=== PATIENT | male | born 1965 | race Caucasian/White ===

== ENCOUNTER 2020-05-12 07:40 | Day surgery (SDC) | payer MEDICARE, MEDICAID ==
[~2020-05-12] VITALS: Ht 180.3 cm; Wt 189.6 kg
[~2020-05-12 07:40] MED LIST: ALLOPURINOL300 MG PO; AMOX TR-K CLV1 EAC1 PO; ASPIR-LOW81 MG PO; COLCHICINE0.6 M1 PO; INSULIN SYRING SUB-Q; LEVEMIR100 UNIT/1 SUB-Q; LEVOTHYROXINE75 MCG PO; LEXAPRO10 MG PO; LOSARTAN POTASS25 MG PO; NOVOLIN N100 UNIT/1 SUB-Q; NOVOLIN R100 UNIT/1 SUB-Q; RELION PRIME1 EACH MISC; SIMVASTATIN10 MG PO; TRULICITY0.75 MG/0. SUB-Q; [UNRECOGNIZED DRUG - OTHER] MISC
--- NOTE | 2020-05-12 08:32 | NUR ---
SEVERE VENOUS STASIS TO LOWER LEGS SMALL 1CM OPEN AREA RIGHT LATERAL LOWER LEG.
--- NOTE | 2020-05-12 08:49 | NUR ---
RED EXCORIATED AREA BUTTOCKS UPPER POSTERIOR THIGHS, WITH MULTIPLE PUSTULE PIMPLES IN AREA .
--- NOTE | 2020-05-12 09:24 | NUR ---
05/12/20 0924 Sushma Florentino 0915- PT ARRIVES TO PACU AROUSABLE TO VOICE. PT VERY DROWSY AND FALLS RIGHT BACK TO SLEEP. RESP EVEN AND UNLABORED. OXYGEN SAT HIGH 90'S TO 100% ON 10L VIA MASK. 09- OXYGEN TITRATED DOWN TO 6L VIA MASK. PT REMAINS AROUSABLE TO STIMULUS, FALLS INSTANTLY BACK TO SLEEP.
--- NOTE | 2020-05-12 10:30 | NUR ---
PT TOLERATES PO WELL WITH NO COMPLAINTS OF NAUSEA. PT HAS URINAL ON BEDRAIL THAT IS EMPTIED OF APPROX 450 MLS YELLOW URINE. PT DRESSES SELF IN ANTICIPATION FOR SISTER'S ARRIVAL. 1110: PT SISTER NOTIFIES DS UNIT THAT SHE IS WAITING AT MAIN HOSPITAL ENTRANCE. PT WHEELED TO PERSONAL VAN IN PARKING LOT TO STORE WC AND DC'S HOME WITH SISTER.
--- NOTE | 2020-05-12 11:37 | OR ---
[facility] [address] [place], [place] [address] Signed DATE OF OPERATION: 05/12/2020 SURGEON: Jeannette Bello MD PREOPERATIVE DIAGNOSES: 1. Normocytic anemia. 2. Chronic diarrhea. POSTOPERATIVE DIAGNOSIS: Moderate internal hemorrhoids. PROCEDURE: Colonoscopy without biopsy. ESTIMATED BLOOD LOSS: None. INDICATIONS: Verito is a 55-year-old morbidly obese gentleman with significant medical issues including hypoventilatory syndrome and his diabetes. He has also been found to have normocytic anemia as well. We tried to do his colonoscopy a few weeks ago, but his prep was quite inadequate. He returns now having undergone a double bowel prep. He said he spent the whole day on the toilet and he thinks it is much better. In the office, we had reviewed endoscopy and of course, he is quite familiar with that at this point in time. He knows there is risk including, but not limited to gas bloating, crampy abdominal pain, bleeding, perforation requiring surgery, and missed diagnosis. Also because of his size and medical issues, we asked that an anesthesia help us with monitored anesthesia care. He had expressed understanding and wished to proceed. DESCRIPTION OF PROCEDURE: Verito was taken into our endoscopy suite and placed in the left lateral decubitus position. He was placed under LMA anesthesia. That proved to be a thomas decision as he is extremely large man with a very full lozano with hypoventilation syndrome. After this, a digital rectal exam was performed and this was unremarkable. The adult colonoscope was introduced and advanced under direct visualization of the camera. Overall, his prep was markedly improved on this occasion, but probably slightly below average. He had areas of liquid particulate stool matter, most of that was suctioned out. Unfortunately, the scope was easy to pass right up to the hepatic flexure. After that, it took some time and effort to get into the right colon. I could not quite get the scope behind the ileocecal valve and therefore, there was some liquid in that area, Electronically Signed By: JEANNETTE BELLO MD 05/12/20 1137 PATIENT NAME: VERITO ROCKWELL [employer] REPORT DATE OF : 65 REPORT #: [id number] PHYSICIAN: JEANNETTE BELLO MD PCP: RAMÍREZ JOHNSTON MD REPORT IS CONFIDENTIAL AND NOT TO BE RELEASED WITHOUT AUTHORIZATION [facility] [address] [place], [place] [address] Signed I could not quite see. Otherwise, he was markedly improved on this occasion. We did identify the ileocecal valve quite readily. We could see bubbles obviously coming through the ileocecal valve during the test. The scope was then slowly withdrawn. We taken random biopsies previously and they had come back fine. Therefore, no additional random biopsies on this occasion. We saw no polyps, no masses, no diverticulosis. The rectum was unremarkable. Upon retroflexion of scope, he does have moderate-sized internal hemorrhoid columns. After this, the gas was suctioned out and the gastroscope removed. Verito had tolerated the procedure quite well. RECOMMENDATIONS: Verito can follow up in 10 years for routine screening colonoscopy. He should always use a double bowel prep. He will always need monitored anesthesia care. Jeannette Bello MD ALB/MODL /[id number] cc: MD Ramírez Nguyễn, MD Jeannette Bello, MD Maurizio Cullen MD Copies: LITA ARRIAZA MD, MALCOLM MD BOWER,JEANNETTE CULLEN,MAURIZIO Bliss MD ~ Electronically Signed By: JEANNETTE BELLO MD 05/12/20 1137 PATIENT NAME: VERITO ROCKWELL [employer] REPORT DATE OF : 65 REPORT #: [id number] PHYSICIAN: JEANNETTE BELLO MD PCP: RAMÍREZ JOHNSTON MD REPORT IS CONFIDENTIAL AND NOT TO BE RELEASED WITHOUT AUTHORIZATION
--- NOTE | 2020-05-12 11:55 | NUR ---
1000 PT STATES HES STARVING. ORANGE JUICE AND SUGAR FREE PUDDING GIVEN. WANTED TO GO TO [place]. CALL TO SISTER FOR RIDE HOME.
== END 2020-05-12 11:20 | disposition home or self-care (01) ==
LOC: DS 07:40 → OPS 07:40 → DS 08:15 → OPS 11:20
PROVIDERS: ATTEND Colon & Rectal Surgery
PROC: 0DJD8ZZ Inspection of Lower Intestinal Tract, Via Natural or Artificial Opening Endoscopic (ICD-10-PCS; principal; 2020-05-12 08:15)
DX: K52.9 Noninfective gastroenteritis and colitis, unspecified (principal); D64.9 Anemia, unspecified; K64.8 Other hemorrhoids; I10 Essential (primary) hypertension; E11.42 Type 2 diabetes mellitus with diabetic polyneuropathy; K21.9 Gastro-esophageal reflux disease without esophagitis; E03.9 Hypothyroidism, unspecified; M10.9 Gout, unspecified; G47.33 Obstructive sleep apnea (adult) (pediatric); Z79.899 Other long term (current) drug therapy
CPT/HCPCS: J2704; J7121

== ENCOUNTER 2020-09-22 11:21 | Emergency (ER) | payer MEDICARE, MEDICAID ==
[~2020-09-22] VITALS: Ht 180.3 cm; Wt 190.1 kg
--- OUTSIDE RECORDS SUMMARY | 2020-09-22 11:24 | XMS ---
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 Margarette has no Care Guidelines for this patient. EShanae VISIT COUNT (12 MO.) 1 MARCUS Dowd TOTAL 1 NOTE: Visits indicate total known visits. ED/UCC VISIT TRACKING (12 MO.) 09/22/2020 11:22 [facility] [place] TYPE: Emergency COMPLAINT: - UNABLE TO AMBULATE INPATIENT VISIT TRACKING (12 MO.) No inpatient visits to display in this time frame [email or web address]
[2020-09-22] MEDS ORDERED: COLCHICINE0.6 M1 PO (14:05)
[2020-09-22] MEDS ORDERED: HYDROCODON-ACE1 EA11 PO (14:05)
== END 2020-09-22 16:01 | disposition home or self-care (01) ==
LOC: ED 11:21
DX: L03.116 Cellulitis of left lower limb (principal); L03.115 Cellulitis of right lower limb; M10.9 Gout, unspecified; E11.9 Type 2 diabetes mellitus without complications; I10 Essential (primary) hypertension; G47.30 Sleep apnea, unspecified; Z79.899 Other long term (current) drug therapy
CPT/HCPCS: 80053; 83735; 83880; 84550; 85025; 99283